=== PATIENT | female | born 1930 | race Caucasian/White ===

== ENCOUNTER 2018-12-02 19:18 | Inpatient (IN) ==
[2018-12-02 20:00] VITALS: BMI 21.7
[2018-12-02] MEDS ORDERED: NON-FORMULARY MEDICATION (Enalapril Maleate [Vasotec] 10 MG) PO SCH (21:00)
[2018-12-02] MEDS: NORVASC PO SCH (21:24)
[2018-12-03] MEDS: NORVASC PO SCH (08:22)
[2018-12-03] MEDS: VASOTEC PO SCH (08:22)
[2018-12-03] MEDS: LOVENOX SUBCUT SCH (08:23)
--- NOTE | 2018-12-03 13:18 | RS.PTINEVL ---
Subjective - Patient information Date of Evaluation: 12/03/18 Date of Arrival on Unit: 12/02/18 Admitted From:: Facility Transfer (transferred from [facility] for swing bed) Diagnosis: s/p kyphoplasty T12 and L3, back pain Usual Living Arrangement: With Spouse Living Arrangement Comments: lives with for 68 years Home Environment: House, Stairs (few), Rail Medical History: Hypertension, Dementia, Diabetes, CHF, Cancer (colon CA) Medical History Comments:: DJD, pulmonary fibrosis, aortic insufficiency, osteoporosis LATEX ALLERGY?: No Medications: see chart Subjective Information/ Patient Comments:: pt states she is doing OK, states she will try to walk. - Level of function Prior to this admission, the patient could do the following:: Independent Ambulation Abilities prior to this admission: pt amb without AD prior to admit, pt was independent with bathing and dressing. assisted with cooking Current Level of Function: Partially Dependent Current Equipment Used at Home: None Pain Assessement - Location thoracic and lumbar spine Description: Aching Pain Behavior: Facial Grimacing Pain Aggravating Factors: Changing Position, Standing Pain Alleviating Factors: Medication Interventions - Objective Patient Orientation: Person Current Interventions: Oxygen Observation: pt with increased thoracic kyphosis and forward head. Range of Motion - ROM Right Upper Extremity AROM: WFL's Left Upper Extremity AROM: WFL's Right Lower Extremity AROM: WFL's Left Lower Extremity AROM: WFL's Muscle Strength - Muscle Strength Right Upper Extremity Strength: Mild Weakness (shld flex 3/5, elbow flex/ext 3+/ 5) Left Upper Extremity Strength: Mild Weakness (shld flex 3/5, elbow flex/ext 3+/5 ) Right Lower Extremity Strength: Mild Weakness (hip flex 3+/5, knee flex/ext 4-/5 , ankle DF/PF 4-/5) Left Lower Extremity Strength: Mild Weakness Sensation - Sensation Right Upper Extremity Sensation: Intact/Normal Left Upper Extremity Sensation: Intact/Normal Right Lower Extremity Sensation: Intact/Normal Left Lower Extremity Sensation: Intact/Normal Palpation Palpation Findings: Tenderness Comments:: tenderness to palpation in thoracic and lumbar spine. Balance - Sitting Balance and Reactions Static Sitting Balance: Fair Dynamic Sitting Balance: Poor Sitting Equilibrium Reactions: Delayed Left, Delayed Right Sitting Protective Reactions: Delayed Left, Delayed Right - Standing Balance and Reactions Static Standing Balance: Poor Dynamic Standing Balance: Poor Standing Equilibrium Reactions: Delayed Left, Delayed Right Standing Protective Reactions: Delayed Left, Delayed Right - Comments Balance Assessment Comments: pt leans backward with initial standing. Functional Mobility - Bed Mobility Rolling R/L: Min Assist, Mod Assist Sit to Supine: Mod Assist, 1 person assist - Transfers Sit to Stand: Min Assist, 2 person assist Stand to Sit: Min Assist, 1 person assist - Safety Awareness Safety Awareness: Poor LEO INDEX SCORE: 34 Ambulation - Ambulation Assistive Device Used: Rolling Walker Orthotic/Prosthetic Device: No Distance: 140ft Assistance needed with Ambulation: Min Assist, 1 person assist, 2 person assist Quality of Ambulation: pt amb with min assist of 1 +1 for O2. Gait Deviations: Forward posture, Short stride, Deviates from path Ambulation Comments: pt amb with decreased step length and flexed posture, pt requires assist to keep pt from deviating from path Factors Affecting Ambulation: Decreased Balance, Pain, Weakness, Decreased Safety, Cognitive Status, Limited Endurance Treatment time - Units charged Gait trainin - Time with patient Length of Evaluation: 19 Total treatment time: 34 Patient Education - Education Patient Education: Home Exercise Program, Education of Plan of Care Teaching Recipient: Patient, Family Teaching Methods: Discussion Comments: discussion with pt and family regarding POC. Assessment - Assessment Problem List:: Decreased level of function, Requires training/education, Decreased safety/Risk of falls, Weakness, Pain limits previous level of function , Cognitive status limits abilities Rehab Potential: Good Further Therapy Indicated?: Yes Candidate for Swing Bed for Therapy Services?: pt is a current swing bed pt. Evaluation Complexity: HISTORY: Medium (HTN, CHF, DJD, dementia, kyphoplasty, age), EXAM OF BODY SYSTEMS: Medium (strength, balance, posture, gait, transfers) , CLINICAL PRESENTATION: Medium (evolving), CLINICAL DECISION MAKING: Medium Short Term Goals GOAL #1: pt demonstrate rolling with bedrails with CGA Goal to be met by: 12/10/18 GOAL #2: Transfer sup to/from sidelying to/from sit with min x 1 Goal to be met by: 12/10/18 GOAL #3: Sit to/from stand min to CGA x 1 Goal to be met by: 12/10/18 GOAL #4: pt amb with rwx 150ft with CGA x 1 Goal to be met by: 12/10/18 GOAL #5: Improve dyn stand balance fair- Goal to be met by: 12/10/18 Custodial Goals GOAL #1: pt transfers sup to/from sidelying to/from sit CGA to SBA Goal to be met by: 12/15/18 GOAL #2: pt amb with rwx functional household distances CGA to SBA Goal to be met by: 12/15/18 GOAL #3: pt/family independent with knowledge of safety precautions for home Goal to be met by: 12/15/18 Plan Plan of Care: Therapeutic EX, Therapeutic Activity Other:: gait training Frequency of Treatment: 1-2 X day, as tolerated Duration of Treatment: 1 1/2 weeks Anticipated Discharge Destination: Home Treatment Diagnosis (ICD 10 Codes): s/p kyphoplasty. M62.81 general weakness. R 26.2 difficulty walking. R26.81 balance impaired Has the Physician been added for Co-signature?: Yes
[2018-12-03] MEDS: NORCO 7.5-325 PO PRN (18:06)
[2018-12-04] MEDS: NORCO 7.5-325 PO PRN ×2 (03:51→13:09)
[2018-12-04] MEDS: VASOTEC PO SCH (08:43)
[2018-12-04] MEDS: LOVENOX SUBCUT SCH (08:43)
[2018-12-04] MEDS: NORVASC PO SCH (08:43)
[2018-12-05] MEDS: NORCO 7.5-325 PO PRN ×3 (00:19→17:12)
[2018-12-05] MEDS: NORVASC PO SCH (08:53)
[2018-12-05] MEDS: VASOTEC PO SCH (08:53)
[2018-12-05] MEDS: LOVENOX SUBCUT SCH (08:54)
[2018-12-06] MEDS: NORCO 7.5-325 PO PRN ×2 (01:59→16:07)
[2018-12-06] MEDS: VASOTEC PO SCH (09:06)
[2018-12-06] MEDS: NORVASC PO SCH (09:06)
[2018-12-06] MEDS: LOVENOX SUBCUT SCH (09:06)
--- NOTE | 2018-12-06 13:26 | RS.OTINEVL ---
Subjective - Patient information Date of Evaluation: 12/06/18 Date of Arrival on Unit: 12/02/18 Admitted From:: Facility Transfer (transferred from [facility] for swing bed) Usual Living Arrangement: With Spouse Living Arrangement Comments: lives with for 68 years, He takes care of her. Pt is confused and requires verbal cues and tactile cues intermittently to complete tasks of ADLS. Home Environment: House, Stairs (few), Rail Medical History: Hypertension, Dementia, Diabetes, CHF, Cancer (colon CA) Medical History Comments:: DJD, pulmonary fibrosis, aortic insufficiency, osteoporosis LATEX ALLERGY?: No Surgical History Comments:: Colon resection, kyphoplasty, cataracts surgery, colon CA, Medications: see chart Subjective Information/ Patient Comments:: Pt reports her back is hurting. - Level of function Prior to this admission, the patient could do the following:: Independent Ambulation Abilities prior to this admission: Pt living at home with her and he takes care of her. Current Level of Function: Partially Dependent Current Equipment Used at Home: None Pain Assessment - Pain Pain Score: 5 Side: bilateral Pain Location Body Site: Back Pain Aggravating Factors: Standing Pain Alleviating Factors: Medication Interventions - Objective Patient Orientation: Person Current Interventions: Oxygen Observation: Pt does not understand why therapy uses a belt and tries to take off the belt. Pt did not remember she was going to use the restroom. Pt requires verbal cues to pull her pants down to use the restroom. Interventions - ROM Right Upper Extremity AROM: Slight limitation Left Upper Extremity AROM: Slight limitation - Strength Right Upper Extremity Strength: Mild Weakness Left Upper Extremity Strength: Mild Weakness - Sensation Right Upper Extremity Sensation: Intact/Normal Left Upper Extremity Sensation: Intact/Normal Balance - Sitting Balance Static Sitting Balance: Fair Dynamic Sitting Balance: Fair - Standing Balance Static Standing Balance: Fair Dynamic Standing Balance: Fair ADL Skills - Self Feeding Self Feeding: Independent - Grooming Grooming: Supervision - Toilet Management Toileting Management: Min Assist, 1 person assist Functional Mobility - Transfers Sit to Stand: Min Assist Stand to Sit: Min Assist Stand Pivot Transfers: Min Assist LEO INDEX SCORE: 64 Additional Treatment Performed - Additional units charged ADL: 16 - Time with patient Length of Evaluation: 22 Total treatment time: 38 Activities Do you enjoy playing games?: Yes Would you be interested in leaving your room for activities?: Yes Would you enjoy group activities?: Yes Do you have difficulty with your vision?: Yes Patient Interests:: Watching Television, Visiting/Socializing Patient Education Patient Education: Home Exercise Program, Home Safety, Education of Plan of Care Teaching Recipient: Patient Teaching Methods: Teach Back Method Used Assessment Problem List:: Decreased level of function, Decreased safety/Risk of falls, Weakness, Pain limits previous level of function Rehab Potential: Good Further Therapy Indicated?: Yes Evaluation Complexity: HISTORY: Medium, EXAM OF BODY SYSTEMS: Medium, CLINICAL DECISION MAKING: Medium Short Term Goals - Goals GOAL 1: Pt to be Min. A with donning her clothes. Goal to be met by: 12/10/18 GOAL 2: Pt to increase standing activity for ADLS to 10 minutes. Goal to be met by: 12/10/18 Progress towards goal: Regressing GOAL 3: Pt to increase functional mobility to CGA to increase independents of ADLS. Goal to be met by: 12/10/18 Goal to be met by: 12/10/18 Subject Scientific Research Goals GOAL 1: Pt to be independent with all ADLS. Goal to be met by: 12/17/18 GOAL 2: Pt to increase standing activity for ADLS to 15 minutes. Goal to be met by: 12/17/18 GOAL 3: Pt to increase functional mobility to Mod I to increase (I) of ADLS. Goal to be met by: 12/17/18 Plan Treatment Diagnosis (ICD 10 Codes): M62.81 Muscle Weakness, Z74.1 Need for assistance with personal care. Has the Physician been added for Co-signature?: Yes
[2018-12-07] MEDS: NORVASC PO SCH (08:43)
[2018-12-07] MEDS: VASOTEC PO SCH (08:43)
[2018-12-07] MEDS: LOVENOX SUBCUT SCH (08:47)
[2018-12-07] MEDS: NORCO 7.5-325 PO PRN (13:13)
[2018-12-08] MEDS: NORCO 7.5-325 PO PRN (03:13)
[2018-12-08] MEDS: VASOTEC PO SCH (10:27)
[2018-12-08] MEDS: NORVASC PO SCH (10:28)
[2018-12-08] MEDS: LOVENOX SUBCUT SCH (10:28)
[2018-12-09] MEDS: VASOTEC PO SCH (08:28)
[2018-12-09] MEDS: LOVENOX SUBCUT SCH (08:28)
[2018-12-09] MEDS: NORVASC PO SCH (08:28)
[2018-12-09] MEDS: NORCO 7.5-325 PO PRN (21:25)
[2018-12-10 06:12] VITALS: BP 120/74; TEMP 98.4
[2018-12-10] MEDS: VASOTEC PO SCH (08:53)
[2018-12-10] MEDS: LOVENOX SUBCUT SCH (08:53)
[2018-12-10] MEDS: NORVASC PO SCH (08:53)
== END 2018-12-10 10:50 | disposition home or self-care (01) | DRG 542 ==
LOC: MEDSURG B 19:18
PROVIDERS: ADMIT Family Medicine; ATTEND Family Medicine
DX: M48.54XA Collapsed vertebra, not elsewhere classified, thoracic region, initial encounter for fracture (principal); J96.90 Respiratory failure, unspecified, unspecified whether with hypoxia or hypercapnia; R26.9 Unspecified abnormalities of gait and mobility; K59.00 Constipation, unspecified; R53.1 Weakness; Z98.890 Other specified postprocedural states
CPT/HCPCS: 36415; 80053; 85025; 87081; 97802